=== PATIENT | female | born 1960 | race Caucasian/White ===

== ENCOUNTER 2018-03-19 10:43 | Outpatient (CLI) | payer BC | END 2018-03-19 10:44 | disposition home or self-care (01) | LOC: BICMAMMO 10:43 | PROVIDERS: ATTEND Family Medicine | DX: Z12.31 Encounter for screening mammogram for malignant neoplasm of breast (principal); R92.1 Mammographic calcification found on diagnostic imaging of breast | CPT/HCPCS: 77063; 77067 ==

== ENCOUNTER 2018-06-17 20:30 | Outpatient (CLI) | payer BC, OTHER | END 2018-06-17 20:31 | disposition home or self-care (01) | LOC: SLEEPLAB 20:30 | PROVIDERS: ATTEND Internal Medicine Cardiovascular Disease | DX: R53.83 Other fatigue (principal); R06.83 Snoring; I10 Essential (primary) hypertension; E66.9 Obesity, unspecified; Z68.42 Body mass index [BMI] 45.0-49.9, adult | CPT/HCPCS: 95811 ==

== ENCOUNTER 2020-06-29 10:48 | Outpatient (CLI) | payer OTHER | END 2020-06-29 10:49 | disposition home or self-care (01) | LOC: DTY/OP 10:48 | PROVIDERS: ATTEND Surgery | DX: E66.01 Morbid (severe) obesity due to excess calories (principal) | CPT/HCPCS: 97802 ==

== ENCOUNTER 2020-07-14 06:30 | Outpatient (CLI) | payer SELFPAY ==
--- NOTE | 2020-07-14 10:52 | RAD ---
RADIOGRAPH CHEST 2 VIEWS: DATE: 07/14/2020 HISTORY: 60-year-old female for preoperative clearance FINDINGS: There is no airspace density, pulmonary edema, pleural effusion, pneumothorax, or cardiomegaly. IMPRESSION: No acute cardiopulmonary findings.
[2020-07-14 11:46] LABS: #Basophils 0.1 10x3/uL (0.0-0.2); #Eosinphils 0.4 10x3/uL (0.0-0.5); #Monocytes 0.6 10x3/uL (0.0-1.1); #Neutrophils 3.9 10x3/uL (1.5-8.4); %Basophils 1.7 % (0.0-2.0); %Eosinophils 5.5 % (0.0-6.0); %Lymphocytes 28.9 % (18.0-47.0); %Monocytes 8.7 % (0.0-10.0); %Neutrophils 54.9 % (40.0-75.0); Hemoglobin 16.8 g/dL (12.0-16.0); Mean Corpuscular Hemoglobin 29.3 PG (27.0-33.0); Mean Corpuscular Volume 86.2 fl (80.0-100.0); Platelet Count 260 10x3/uL (130-400); RBC Distribution Width 12.1 % (11.5-14.5); Red Blood Cell (RBC) Count 5.73 10x6/uL (3.90-5.20); White Blood Cell (WBC) Count 7.1 10x3/uL (4.5-11.0)
[2020-07-14 12:00] LABS: ALT (SGPT) 84 U/L (8-55); AST (SGOT) 40 U/L (5-34); Albumin 4.5 g/dL (3.5-5.0); Alkaline Phosphatase 67 U/L (40-110); Anion Gap 17 mmol/L (10-20); BUN (Urea Nitrogen) 17 mg/dL (9.8-20.1); Bilirubin, Total 0.6 mg/dL (0.2-1.2); Calc. Creatinine Clearance 0 mL/min (70-130); Calcium 9.6 mg/dL (7.8-10.44); Carbon Dioxide 26 mmol/L (22-29); Chloride 98 mmol/L (98-107); Estimated GFR-MDRD 54; Globulin 2.9 g/dL (2.4-3.5); Glucose 98 mg/dL (70-105); Potassium 3.8 mmol/L (3.5-5.1); Protein, Total 7.4 g/dL (6.0-8.3); Sodium 137 mmol/L (136-145)
[2020-07-14 17:06] LABS: SARS-CoV-2 MS2 Positive; SARS-CoV-2 N Gene Negative; SARS-CoV-2 S Gene Negative; SARS-CoV-2 by NAA Not Detected (NotDetected); SARS-CoV-2 orf1ab Negative
== END 2020-07-14 06:31 | disposition home or self-care (01) ==
LOC: LABBT 06:30
PROVIDERS: ATTEND Surgery
DX: Z01.818 Encounter for other preprocedural examination (principal); Z20.828 Contact with and (suspected) exposure to other viral communicable diseases; E66.01 Morbid (severe) obesity due to excess calories
CPT/HCPCS: 71046; 80053; 85025; 87635; 93005; 93010; U0003

== ENCOUNTER 2020-07-14 10:00 | Inpatient (IN) | payer OTHER ==
[2020-07-14 10:58] VITALS: BMI 47.6
[2020-07-19] MEDS ORDERED: Heparin 5,000 UNITS/ML VIAL ONE (07:52)
[2020-07-19 08:21] LABS: Hemoglobin A1c 6.1 % (4.0-6.0)
[2020-07-19] MEDS ORDERED: Fentanyl 250 MCG/5 ML VIAL ONE (09:00)
[2020-07-19] MEDS ORDERED: Bupivacaine 0.25% HCL 30 ML VIAL ONE (09:01)
[2020-07-19] MEDS ORDERED: Midazolam HCl 2 mg/2 ml Vial ONE (09:01)
[2020-07-19] MEDS ORDERED: Lidocaine 1% w/Epinephrine 1:100K 20 ML VIAL ONE (09:01)
[2020-07-19] MEDS ORDERED: Promethazine HCl 25 MG/ML VIAL IM PRN ×3 (10:16→11:41)
[2020-07-19] MEDS ORDERED: Ondansetron HCl/PF 4 MG/2 ML Vial IVP PRN (10:16)
[2020-07-19] MEDS ORDERED: Promethazine HCl 25 MG/ML VIAL SLOW IVP PRN (10:16)
[2020-07-19] MEDS ORDERED: Dextrose 50% Abboject 50 ML SYRINGE SLOW IVP PRN (10:32)
[2020-07-19] MEDS ORDERED: Dextrose 5% in Water 1,000 ML IV PRN (10:32)
[2020-07-19] MEDS ORDERED: Hydrocodone-Acetamin 15 ML UDCUP PO PRN (10:32)
[2020-07-19] MEDS ORDERED: hydrALAZINE 20 MG/ML VIAL SLOW IVP PRN (10:32)
[2020-07-19] MEDS ORDERED: diphenhydrAMINE 50 MG/ML VIAL IVP PRN ×2 (10:32→11:41)
[2020-07-19] MEDS ORDERED: Ondansetron PF 4 MG/2 ML Vial IVP PRN ×2 (10:32→11:41)
[2020-07-19] MEDS ORDERED: SUGAMMADEX SODIUM 200 MG/2 ML VIAL ONE (10:41)
[2020-07-19] MEDS ORDERED: Fentanyl 100 MCG/2 ML VIAL ONE ×2 (10:54→11:33)
--- NOTE | 2020-07-19 11:11 | OP ---
DATE OF PROCEDURE: 07/19/2020 PREOPERATIVE DIAGNOSIS: Morbid obesity. PROCEDURES PERFORMED: Laparoscopic sleeve gastrectomy, esophagogastroscopy. INDICATIONS: The patient is a 60-year-old female, morbidly obese, who has attempted multiple weight loss programs without success. FINDINGS: A 38-[place] bougie was used. DESCRIPTION OF PROCEDURE: After informed consent was obtained, the patient was taken to the operating room, given general endotracheal anesthesia, placed in supine position. Abdomen was prepped and draped in usual fashion. Local anesthesia was infiltrated subcutaneously and deep. A 12-mm incision was performed approximately 8 cm below xiphoid, slight to left. Veress needle inserted. Drop test performed. Pneumoperitoneum was created to a pressure of 15 mmHg. A 0-degree laparoscope inserted under direct vision. A Jenny liver retractor inserted. Left lobe of the liver retracted superiorly. The pylorus identified, and 12-mm port placed on the right beneath it and two 12s were displaced left subcostal. The omentum was taken off the greater curvature 5 cm from the pylorus utilizing a LigaSure. Short gastrics divided with the LigaSure and left crura defined with LigaSure. A 38-[place] bougie inserted, directed into the antrum. The linear 60-mm green load stapler used to divide the antrum to the bougie, gold load along the bougie, and a series of blues through the angle of His. Intraoperative endoscopy was performed. The video endoscope was inserted under direct vision, advanced into the sleeve. The staple line inspected. There was no bleeding. Staple line then tested by insufflating the new stomach with pressurized air under water. There was no air leak. Stomach decompressed. Scope removed. The remnant stomach removed from the abdomen through left lateral port site. The fascia closed with 0 Vicryl suture in GraNee needle. Trocars and retractors removed. The skin closed with interrupted 4-0 Rapide. Dermabond applied. The patient tolerated the procedure well, transferred to Recovery in good condition. Sponge and needle count verified correct x2. Job ID: [id number]
[2020-07-19] MEDS ORDERED: Zolpidem Tartrate 5 MG TAB PO PRN (11:41)
[2020-07-19] MEDS ORDERED: diphenhydrAMINE 25 MG CAP PO PRN (11:41)
[2020-07-19] MEDS ORDERED: diphenhydrAMINE 50 MG/ML VIAL IM PRN (11:41)
[2020-07-19] MEDS ORDERED: fentaNYL Citrate/PF 2,000 MCG in Sodium Chloride 0.9% 60 ML IV PRN (11:41)
[2020-07-19] MEDS ORDERED: Naloxone HCl 0.4 mg/ml Vial IV PRN (11:41)
[2020-07-19] MEDS ORDERED: Communication Order-Pharmacy FS PRN (11:45)
[2020-07-19] MEDS ORDERED: Ketorolac Tromethamine 30 MG/ML VIAL IVP SCH (12:00)
[2020-07-19] MEDS: D5 1/2 NS w/20 mEq KCL 1,000 ML IV SCH ×2 (13:35→20:38)
[2020-07-19] MEDS ORDERED: Glycopyrrolate 0.2 MG/ML 5 ML SYRINGE ONE (14:30)
[2020-07-19] MEDS ORDERED: Dexamethasone 20 MG/5 ML VIAL ONE (14:30)
[2020-07-19] MEDS ORDERED: Ketorolac Tromethamine 30 MG/ML VIAL ONE (14:30)
[2020-07-19] MEDS ORDERED: Ondansetron PF 4 MG/2 ML Vial ONE (14:30)
[2020-07-19] MEDS ORDERED: Lidocaine 1% PF 5 ML VIAL ONE (14:30)
[2020-07-19] MEDS ORDERED: Rocuronium Bromide 10 MG/ML (10ML VIAL) ONE (14:30)
[2020-07-19] MEDS ORDERED: PROPOFOL 200 MG/20 ML VIAL ONE (14:30)
[2020-07-19] MEDS: Ketorolac Tromethamine 30 MG/ML VIAL IVP SCH ×2 (16:33→21:07)
[2020-07-20] MEDS: Ketorolac Tromethamine 30 MG/ML VIAL IVP SCH ×2 (04:13→11:05)
[2020-07-20] MEDS: D5 1/2 NS w/20 mEq KCL 1,000 ML IV SCH ×2 (04:13→11:03)
[2020-07-20 05:57] LABS: #Lymphocytes 1.5 thou/uL (1.20-3.40); #Neutrophils 10.3 thou/uL (1.40-6.50); %Basophils 0.3 % (0.0-1.0); %Eosinophils 0.2 % (0.0-10.0); %Lymphocytes 11.7 % (21.0-51.0); %Monocytes 7.8 % (0.0-10.0); %Neutrophils 80.1 % (42.0-75.0); Hemoglobin 13.7 g/dL (12.0-16.0); Mean Corpuscular HGB CONC 33.7 g/dL (32.0-36.0); Mean Corpuscular Hemoglobin 30.3 pg (27.0-31.0); Mean Corpuscular Volume 89.9 fL (78.0-98.0); Mean Platelet Volume 8.8 fL (7.4-10.4); Platelet Count 205 thou/uL (130-400); RBC Distribution Width 11.7 % (11.5-14.5); Red Blood Cell (RBC) Count 4.54 mill/uL (4.20-5.40); White Blood Cell (WBC) Count 12.9 thou/uL (4.8-10.8)
[2020-07-20 06:18] LABS: Anion Gap 12 mmol/L (10-20); BUN (Urea Nitrogen) 7 mg/dL (9.8-20.1); Calc. Creatinine Clearance 158 mL/min (70-130); Calcium 8.6 mg/dL (7.8-10.44); Carbon Dioxide 24 mmol/L (22-29); Chloride 106 mmol/L (98-107); Estimated GFR-MDRD 72; Glucose 136 mg/dL (70-105); Potassium 3.7 mmol/L (3.5-5.1); Sodium 138 mmol/L (136-145)
[2020-07-20] MEDS ORDERED: Enoxaparin Sodium 40 MG/0.4 ML SYRINGE SC SCH (09:00)
[2020-07-20] MEDS ORDERED: FLU VACC QS2020-21(6MOS UP)/PF 60 MCG/0.5 ML SYRINGE IM ONE (09:00)
[2020-07-20] MEDS ORDERED: Pantoprazole 40 MG VIAL IVP SCH (09:00)
[2020-07-20] MEDS ORDERED: Hydrocodone-Acetamin 15 ML UDCUP PO PRN (11:55)
[2020-07-20 15:50] VITALS: BP 143/84; TEMP 98.3
--- NOTE | 2020-07-21 07:56 | DIS ---
DATE OF ADMISSION: 07/19/2020 DATE OF DISCHARGE: 07/20/2020 DISCHARGE DIAGNOSIS: Morbid obesity. PROCEDURES DURING ADMISSION: Laparoscopic sleeve gastrectomy, intraoperative esophagogastroscopy. HOSPITAL COURSE: The patient was admitted, taken to the operating room where she underwent sleeve gastrectomy. Postoperatively, she has done well. She is tolerating liquids well. Pain is controlled on p.o. medications. She is discharged home on hydrocodone and Zofran. She will follow up with me in 2 weeks. Job ID: [id number]
== END 2020-07-20 15:53 | disposition home or self-care (01) | DRG 621 ==
LOC: SURG A 07-19 07:25 → EDSTATUS 07-19 10:00 → SURG A 07-19 13:21
PROVIDERS: ADMIT Surgery; ATTEND Surgery
PROC: 0DB64Z3 Excision of Stomach, Percutaneous Endoscopic Approach, Vertical (ICD-10-PCS; principal; 2020-07-19)
PROC: 0DJ08ZZ Inspection of Upper Intestinal Tract, Via Natural or Artificial Opening Endoscopic (ICD-10-PCS; 2020-07-19)
DX: E66.01 Morbid (severe) obesity due to excess calories (principal); Z68.42 Body mass index [BMI] 45.0-49.9, adult; I10 Essential (primary) hypertension; Z20.828 Contact with and (suspected) exposure to other viral communicable diseases; Z90.710 Acquired absence of both cervix and uterus; Z23 Encounter for immunization; Z79.899 Other long term (current) drug therapy
CPT/HCPCS: 36415; 80048; 83036; 85025; 88307; 88312; 90471; 90662; C9113; G0008; J0690; J1100; J1644; J1650; J1885; J2250; J2405; J2704; J3010; J3480; S0020

== ENCOUNTER 2021-06-06 12:56 | Outpatient (CLI) | payer BC | END 2021-06-06 12:57 | disposition home or self-care (01) | LOC: BICMAMMO 12:56 | PROVIDERS: ATTEND Family Medicine | DX: Z12.31 Encounter for screening mammogram for malignant neoplasm of breast (principal) | CPT/HCPCS: 77063; 77067 ==